=== PATIENT | female | born 1950 | race African-American/Black ===

== ENCOUNTER 2018-12-15 12:18 | Emergency (ER) | payer OTHER, MEDICARE ==
[~2018-12-15] VITALS: Ht 154.9 cm; Wt 45.0 kg
[2018-12-15] MEDS ORDERED: DIATR MEGLU/DIATRIZOATE SOLN 30ML ONE (14:55)
[2018-12-15 16:40] VITALS: BP 118/43
== END 2018-12-15 16:40 | disposition home or self-care (01) ==
LOC: ER 12:18
DX: Z46.59 Encounter for fitting and adjustment of other gastrointestinal appliance and device (principal); Z87.891 Personal history of nicotine dependence; J44.9 Chronic obstructive pulmonary disease, unspecified; Z98.890 Other specified postprocedural states
CPT/HCPCS: 74018; 99283; Q9963